=== PATIENT | female | born 1965 | race Caucasian/White ===

== ENCOUNTER 2016-06-07 09:30 | Inpatient (IN) | payer BC, OTHER ==
[2016-06-04 13:10] LABS: HEMATOCRIT 37.5 % (36.0-48.0); HEMOGLOBIN 12.7 g/dL (12.0-16.0)
--- NOTE | ~2016-06-07 | OP ---
Record Of Operation [facility] [address] [place]. [address] NAME: YENI THAKKAR : 67 STATUS : ADM Kareen PAT#: [id number] AGE: 51 ADM/REG DATE : 06/07/16 MR#: [id number] REPORT SERV DATE: 06/08/16 DICTATED BY: MARLON GONZALEZ DATE: 06/08/16 REPORT STATUS : Draft TRANSCRIBED BY: MODRoge DATE: 06/08/16 DATE OF PROCEDURE: 06/07/2016 PREOPERATIVE DIAGNOSIS: Left joint depression calcaneal fracture. POSTOPERATIVE DIAGNOSIS: Left joint depression calcaneal fracture. PROCEDURE: Left joint depression calcaneal fracture ORIF. SURGEON: Marti Aguilar.P.M. ANESTHESIA: General local anesthetic. ESTIMATED BLOOD LOSS: Minimal. COMPLICATION: None. INJECTABLES: Approximately a 40 mL of 1:1 mixture of 1% Xylocaine plain and 0.5% Marcaine plain. MATERIALS: Include Arthrex calcaneal plating percutaneous plating system with locking and nonlocking 3.5 and 4.0 screw fixation, 2 mL of DBM bone putty, 2-0 and 4-0 Vicryl, 4-0 nylon. PROCEDURE IN DETAIL: Under mild sedation, the patient was brought to the operating room and placed on the operating table in supine position. Following general anesthesia, local anesthesia obtained about the patient's left foot. Left foot, ankle, and lower leg was scrubbed, prepped, and draped in usual aseptic manner. Attention was directed to the procedure. Procedure #1 is left joint depression calcaneal fracture ORIF. Attention directed to the lateral aspect of the patient's left ankle where an approximate 4-5 cm curvilinear incision made overlying the sinus tarsi and ending inferior and posterior to the tip of the distal fibula. Incision contoured toward the base of the 4th metatarsal. The incision was deepened to subcutaneous tissue with care being taken to identify and retract all vital neurovascular structures. All bleeders were cauterized and ligated as necessary. Blunt dissection was continued down to the level of sinus tarsi. Hematoma formation was evacuated at that site. Linear incision made just inferior to the extensor brevis muscle belly and superior to the peroneal tendons. Portions of the inferior brevis muscle belly were retracted superiorly and utilizing a reina elevator, the K-wire was placed deep to the peroneal tendons and peroneal tendon sheath in a full thickness, and full-thickness dissection continued with the Reina elevator hugging the lateral wall of the calcaneus. Deep [place] retraction was performed. The lateral blowout was identified. At this time, the CF ligament was incised and was tagged for later reapproximation. Excellent visualization of the subtalar joint ensued. At this time, a secondary fracture line and primary fracture line were identified. At this time, copious irrigation was performed after freeing the Record Of Operation [facility] [address] [place]. [address] NAME: YENI THAKKAR : 67 STATUS : ADM Kareen PAT#: [id number] AGE: 51 ADM/REG DATE : 06/07/16 MR#: [id number] REPORT SERV DATE: 06/08/16 DICTATED BY: MARLON GONZALEZ DATE: 06/08/16 REPORT STATUS : Draft TRANSCRIBED BY: TAB DATE: 06/08/16 lateral portion of the facet fracture. Debridement of all hematoma formation ensued. Next, a Shanz pin was placed within the calcaneus centrally. At this time, distraction of the calcaneus in order to maintain length and reduction out of varus positioning also ensued. Simultaneously, a small curved osteotome was placed within the secondary fracture line and placed underneath the constant fragment for stabilization. At this time, again the calcaneus was placed into a distracted position and reduction out of varus positioning as a richa pin was placed into the medial calcaneus entering into the constant fragment for stabilization. Excellent stabilization was noted under calcaneal axial visualization. Next, attention was directed to reduction of the posterior facet fracture. At this time, the lateral portion of the fracture was elevated and was temporarily tacked with a K-wire in order to assess reduction. Excellent reduction was noted. Visualization of the posterior facet showed a flush joint. There was no joint depression at that time. At this time, a 3.5 partially threaded cancellous screw was placed across the fracture site in a cannulated fashion with excellent compression noted. At this time, DBM bone putty was utilized to place within the void of the calcaneal body deficit. At this time, with continued distraction ensued, the percutaneous plate was maneuvered deep to the peroneal tendons and deep tissues subperiosteally in order to contour the lateral calcaneal body and anterior calcaneus. Excellent positioning was noted. Locking and non-locking screw fixation was placed throughout the plate and this was done percutaneously to the posterior aspect. Excellent positioning was noted. Excellent stabilization was noted as well. The Steinmann pin was removed. The Shanz pin was removed. Excellent position was noted on Broden view, lateral view, and calcaneal axial views. Copious irrigation ensued. Deep and superficial fascia reapproximated and coapted utilizing 2-0 and 4-0 Vicryl. Skin was reapproximated using 4-0 nylon to the lateral incision, percutaneous incision as well as to the Shanz pin insertion to posterior heel. A well-padded sterile dressing was placed about the patient's left foot, ankle, and lower leg. The patient tolerated the procedure and anesthesia well and was transferred to the recovery room with vital signs stable and vascular status intact to all toes. Following a period of postoperative monitoring, the patient will be admitted for 23-hour observation for postoperative pain management. The patient will be strict nonweightbearing at all times. Ice and elevate as directed. I will follow the patient on the floor. CARLOS/TAB Velasquez Gonzalez D.P.M. / [id number] CC: Velasquez Gonzalez D.P.M.
--- NOTE | ~2016-06-07 | CN ---
Consultation Report [address] [place]. [address] NAME: YENI THAKKAR : 67 STATUS : ADM Kareen PAT#: [id number] AGE: 51 ADM/REG DATE : 06/07/16 MR#: [id number] REPORT SERV DATE: 06/08/16 DICTATED BY: DATE: REPORT STATUS : Draft TRANSCRIBED BY: MODL DATE: 06/08/16 CONSULTATION DATE OF CONSULTATION: CONSULTATION REASON: Hypertension. HISTORY OF PRESENT ILLNESS: The patient was admitted for a left calcaneus fracture, status post ORIF. She is a 51-year-old female with no past medical history. Surgical history includes D and C in 2002, tonsillectomy in 1969. Apparently, the patient fell in a concrete pool. Post-surgery, she has been quite hypertensive with a systolic blood pressure from 180s to 200s and she does not have a history of hypertension, although she reports she has not been following with a primary care provider and that she has had "borderline" hypertension in the past with a systolic blood pressure in the 130s to 140s. PAST MEDICAL HISTORY: As mentioned above, she denies medical problems. SURGICAL HISTORY: D and C in 2002, tonsillectomy in 1969. FAMILY HISTORY: Mother had hypertension and osteoporosis. Father had hypertension, diabetes mellitus, arthritis, coronary artery disease with stents. SOCIAL HISTORY: The patient denies tobacco use. Reports ETOH use one to two times per month during which time she drinks five to six beers at a time. 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 ALLERGIES: THE PATIENT HAS NO KNOWN DRUG ALLERGIES. HOME MEDICATIONS: Include aspirin 81 mg p.o. daily, Percocet 5/325 mg tablet one tab p.o. q.6 hours p.r.n. for pain. PHYSICAL EXAMINATION: GENERAL: The patient appears healthy. She is appropriate in her conversation. She is alert and oriented x4. She is in no acute distress at this time. NEURO: Again, she is alert and oriented x4. Cranial nerves grossly intact. NECK: There is no JVD noted. Bruits are absent. CHEST: Lungs are clear. Normal respiratory effort. CV: S1 and S2 present. No murmurs, bruits, thrills, rubs, or gallops noted. Regular rate and rhythm. ABDOMEN: Soft. Bowel sounds present. EXTREMITIES: Left calcaneus dressing is clean, dry, and intact. Peripheral pulses present. LABS: Hemoglobin and hematocrit 12.7 and 37.5 on 06/04/2016. Imaging not performed during this admission. Consultation Report [facility] [id number] [place]. [address] NAME: YENI THAKKAR : 67 STATUS : ADM Kareen PAT#: [id number] AGE: 51 ADM/REG DATE : 06/07/16 MR#: [id number] REPORT SERV DATE: 06/08/16 DICTATED BY: DATE: REPORT STATUS : Draft TRANSCRIBED BY: MODL DATE: 06/08/16 ASSESSMENT: 1. Status post left calcaneus fracture, status post open reduction and internal fixation. 2. Hypertensive urgency. PLAN: The patient is asymptomatic at this time. I will give her clonidine 0.1 mg p.o. x1 dose and monitor her blood pressure closely. We will give her lisinopril 10 mg p.o. daily. Give her a prescription after discharge. Once her blood pressure is under control, have the patient follow up with her primary care provider within one week for further blood pressure monitoring and management. Thank you for the consultation. SAFIA/TAB Jeremiah Quan NP / [id number] CC: Jonathan AguilarP.MDelia Craig MD
[~2016-06-07 09:30] MED LIST: ASAB PO; PCET PO
[2016-06-08 15:35] LABS: BASOPHILS 0.1 %; BASOPHILS ABSOLUTE 0.01 10/3/uL (0.0-0.16); EOSINOPHILS 0.2 %; EOSINOPHILS ABSOLUTE 0.02 10/3/uL (0.0-0.53); HEMATOCRIT 38.1 % (36.0-48.0); HEMOGLOBIN 13.2 g/dL (12.0-16.0); IMMATURE GRANULOCYTES 0.2 %; IMMATURE GRANULOCYTES ABSOLUTE 0.02 10/3/uL (0.0-0.11); LYMPHOCYTES 22.5 %; LYMPHOCYTES ABSOLUTE 2.09 10/3/uL (0.67-4.30); MEAN CORPUS HGB CONC 34.6 g/dL (32.0-36.0); MEAN CORPUSCULAR HEMOGLOB 33.1 pg (26.0-34.0); MEAN CORPUSCULAR VOLUME 95.5 fL (80-100); MEAN PLATELET VOLUME 9.7 fL (9.2-13.0); MONOCYTES 3.4 %; MONOCYTES ABSOLUTE 0.32 10/3/uL (0.21-1.20); NEUTROPHILS 73.6 %; NEUTROPHILS ABSOLUTE 6.83 10/3/uL (2.02-8.40); PLATELET COUNT 317 10/3/uL (150-400); RBC DISTRIBUTION WIDTH 12.7 % (12.0-16.0); RED CELL COUNT 3.99 10/6/uL (4.0-5.6); WHITE BLOOD CELLS 9.3 10/3/uL (4.5-10.5)
[2016-06-08 15:36] LABS: MANUAL DIFF NO %
[2016-06-08 15:50] LABS: A/G RATIO 0.9 (0.7-1.9); ALBUMIN 3.5 G/DL (3.5-5.0); ALKALINE PHOSPHATASE 98 U/L (45-117); BUN (BLOOD UREA NITROGEN) 9 MG/DL (6-23); CALCIUM, SERUM 8.7 MG/DL (8.5-10.4); CHLORIDE, SERUM 102 MMOL/L (96-112); CO2 (CARBON DIOXIDE) 30 MMOL/L (24-34); CREATININE 0.88 MG/DL (0.55-1.02); GFR AFRICAN AMERICAN 89 ML/MIN (>=60); GFR NON AFRICAN AMERICAN 77 ML/MIN (>=60); GLUCOSE, SERUM 115 MG/DL (60-99); SGOT(AST) 13 U/L (5-40); SGPT(ALT) 19 U/L (5-65); SODIUM, SERUM 139 MMOL/L (135-148); TOTAL BILIRUBIN 0.5 MG/DL (0-1.2); TOTAL PROTEIN 7.5 G/DL (6.0-8.5)
[2016-06-09] MEDS ORDERED: PR25 PO (12:05)
[2016-06-09] MEDS ORDERED: ELIQUIS 2.5 MG2.5 MG PO (12:06)
[2016-06-09] MEDS ORDERED: HYDROCHLOROT25 MG PO (12:06)
[2016-06-09] MEDS ORDERED: DIL2TAB PO (12:08)
[2016-06-09] MEDS ORDERED: DSS PO (12:10)
== END 2016-06-09 13:09 | disposition home or self-care (01) | DRG 504 ==
LOC: SDC 09:30 → SDC/OF 14:54 → PACU 14:55 → 5SO 17:00
PROVIDERS: Internal Medicine; Podiatrist Foot & Ankle Surgery
PROC: 0QSM04Z Reposition Left Tarsal with Internal Fixation Device, Open Approach (ICD-10-PCS; principal; 2016-06-07 10:45)
DX: S92.002A Unspecified fracture of left calcaneus, initial encounter for closed fracture (principal); I16.9 Hypertensive crisis, unspecified; Z82.49 Family history of ischemic heart disease and other diseases of the circulatory system; Y93.89 Activity, other specified; Z79.82 Long term (current) use of aspirin; W01.0XXA Fall on same level from slipping, tripping and stumbling without subsequent striking against object, initial encounter
CPT/HCPCS: 80048; 80053; 85014; 85018; 85025; 93005; 97161-GP; A9270-GY; C1713; C1769; J0360; J0690; J2250; J2270; J2405; J3010